=== PATIENT | male | born 1955 | race Caucasian/White ===

== ENCOUNTER 2018-02-15 08:19 | Emergency (ER) | payer MEDICARE ==
[~2018-02-15] VITALS: Ht 180.3 cm; Wt 105.0 kg
[~2018-02-15 08:19] MED LIST: BACTRIM DS1 TAB PO; DEPAKOTE250 MG OR; DEPAKOTE500 MG PO; DILANTIN100 MG PO; DOES NOT KNOW MEDS; ENALAPRIL5 MG PO; HYDROCHLORO25 MG/TAB PO; HYDROCHLOROT25 MG PO; KEPPRA500 M2 PO; LISINOPRIL10 MG PO; LISINOPRIL5 MG PO; METOPROLOL SUCC50 MG; METOPROLOL TART50 MG OR; METOPROLOL TART50 MG PO; PENICILLN VK500 MG PO; VANCOMYCIN HCL1.5GM IV
[2018-02-15 09:00] LABS: IMMATURE GRANULOCYTES 0.6 % (0.0-5.0); MEAN CELL VOLUME 89.6 fL CALC (80.0-100.0); MEAN CORPUSCULAR HGB 30.6 pG CALC (26.0-32.0); MEAN CORPUSCULAR HGB CONC 34.2 g/L CALC (32.0-36.0); NEUT# 4.28 thou/uL (1.82-7.42); RED CELL DISTRI WIDTH 13.1 % (11.5-15.5)
[2018-02-15 09:09] LABS: ANION GAP 16 (6-22 (CALC)); BILIRUBIN, TOTAL 0.4 mg/dL (0.0-1.4); BUN 20 mg/dL (8-23); BUN/CREATININE RATIO 18 (12-20 (CALC)); CARBON DIOXIDE 23 mmol/l (22-30); CHLORIDE 106 mmol/l (95-108); CREATININE 1.1 mg/dL (0.7-1.3); GFR > 60 ML/MIN (>=60 (CALC)); GFR FOR AFR.AMER. > 60 ML/MIN (>=60 (CALC)); POTASSIUM 4.6 mmol/l (3.5-5.1); SGPT/ALT 50 u/l (11-66); SODIUM 141 mmol/l (137-146)
[2018-02-15 09:10] LABS: HEMATOCRIT 44.8 % (39.0-50.0); HEMOGLOBIN 15.3 g/dl (14.0-18.0)
[2018-02-15 09:27] LABS: ALBUMIN 4.3 g/dL (3.2-5.0); ALKALINE PHOSPHATASE 107 u/l (38-126); SGOT/AST 43 u/l (19-48); TOTAL PROTEIN 7.7 g/dL (6.3-8.2)
[2018-02-15] MEDS ORDERED: MIRALAX3350 N1 PO (15:54)
[2018-02-15 16:00] VITALS: BP 184/81
== END 2018-02-15 16:05 | disposition home or self-care (01) ==
LOC: ED 08:19
PROVIDERS: Emergency Medicine
DX: K59.00 Constipation, unspecified (principal); M25.511 Pain in right shoulder; R10.11 Right upper quadrant pain; I10 Essential (primary) hypertension; G40.909 Epilepsy, unspecified, not intractable, without status epilepticus; R07.9 Chest pain, unspecified

== ENCOUNTER 2019-02-11 09:41 | Emergency (ER) | payer OTHER, MEDICARE ==
[~2019-02-11] VITALS: Ht 180.3 cm; Wt 106.8 kg
[~2019-02-11 09:41] MED LIST changes: +MIRALAX3350 N1 PO
[2019-02-11 10:18] LABS: HEMATOCRIT 42.9 % (39.0-50.0); HEMOGLOBIN 14.7 g/dl (14.0-18.0); MEAN CELL VOLUME 89.4 fL CALC (80.0-100.0); MEAN CORPUSCULAR HGB 30.6 pG CALC (26.0-32.0); MEAN CORPUSCULAR HGB CONC 34.3 g/L CALC (32.0-36.0); NEUT# 5.71 thou/uL (1.82-7.42); RED BLOOD COUNT 4.8 mill/uL (4.70-6.10); RED CELL DISTRI WIDTH 13.2 % (11.5-15.5)
[2019-02-11 10:33] LABS: ALBUMIN 4.6 g/dL (3.2-5.0); ALKALINE PHOSPHATASE 114 u/l (38-126); ANION GAP 16 (6-22 (CALC)); BILIRUBIN, TOTAL 0.4 mg/dL (0.0-1.4); BUN 20 mg/dL (8-23); BUN/CREATININE RATIO 18 (12-20 (CALC)); CARBON DIOXIDE 25 mmol/l (22-30); CHLORIDE 99 mmol/l (95-108); CREATININE 1.1 mg/dL (0.7-1.3); GFR > 60 ML/MIN (>=60 (CALC)); GFR FOR AFR.AMER. > 60 ML/MIN (>=60 (CALC)); LIPASE 254 u/l (23-300); POTASSIUM 4.4 mmol/l (3.5-5.1); SGOT/AST 70 u/l (19-48); SODIUM 135 mmol/l (137-146); TOTAL PROTEIN 7.9 g/dL (6.3-8.2)
[2019-02-11 10:40] LABS: GFR > 60 ML/MIN (>=60 (CALC)); GFR FOR AFR.AMER. > 60 ML/MIN (>=60 (CALC))
[2019-02-11] MEDS ORDERED: AMOXICILLIN/CL875 MG PO (12:39)
[2019-02-11 13:00] VITALS: BP 152/74
[2019-02-11] MEDS ORDERED: CYCLOBENZAPR5 MG PO (13:06)
== END 2019-02-11 13:52 | disposition home or self-care (01) | DRG 90 ==
LOC: ED 09:41
PROVIDERS: Family Medicine
DX: S06.0X1A Concussion with loss of consciousness of 30 minutes or less, initial encounter (principal); S02.2XXA Fracture of nasal bones, initial encounter for closed fracture; S00.31XA Abrasion of nose, initial encounter; V59.49XA Driver of pick-up truck or van injured in collision with other motor vehicles in traffic accident, initial encounter
CPT/HCPCS: Q9967

== ENCOUNTER 2024-07-20 10:23 | Emergency (ER) | payer MEDICARE ==
[~2024-07-20] VITALS: Ht 180.3 cm; Wt 99.8 kg
[2024-07-20] VITALS (14 sets, daily range): BP systolic 71–143; BP diastolic 44–74
[~2024-07-20 10:23] MED LIST changes: +AMOXICILLIN/CL875 MG PO; +CYCLOBENZAPR5 MG PO; +ESMOLOL; +LAMICTAL200 M1 PO; +TOPROL XL50 MG PO
[2024-07-20] MEDS ORDERED: ASPIRIN 81 MG/TAB PO ONE (11:10)
[2024-07-20 11:14] LABS: BASO% 0.3 % (0-3); HEMATOCRIT 41.8 % (39.0-50.0); HEMOGLOBIN 13.7 g/dl (14.0-18.0); IMMATURE GRANULOCYTES 1.4 % (0.0-5.0); MEAN CELL VOLUME 96.3 fL CALC (80.0-100.0); MEAN CORPUSCULAR HGB 31.6 pG CALC (26.0-32.0); MEAN CORPUSCULAR HGB CONC 32.8 g/dL CAL (32.0-36.0); MONO% 7.8 % (2-13); NEUT# 4.62 thou/uL (1.82-7.42); NEUT% 66.5 % (42-76); RED BLOOD COUNT 4.34 mill/uL (4.70-6.10); RED CELL DISTRI WIDTH 14.1 % (11.5-15.5)
[2024-07-20] MEDS ORDERED: LIDOCAINE HCL 2 % JELLY TOP ONE (11:30)
[2024-07-20 11:38] LABS: ALBUMIN 4.1 g/dL (3.2-5.0); BILIRUBIN, TOTAL 0.5 mg/dL (0.2-1.3); CHOLESTEROL HDL RATIO 4.3 (<4.4 (CALC)); CREATININE 1.7 mg/dL (0.7-1.3); POTASSIUM 5.4 mmol/l (3.5-5.1); TOTAL PROTEIN 7.1 g/dL (6.3-8.2)
[2024-07-20 11:40] LABS: PROTHROMBIN TIME 10.9 SECONDS (9.0-12.5)
[2024-07-20] MEDS ORDERED: MORPHINE SULFATE 4 MG/ML VIAL IV ONE (15:00)
[2024-07-20] MEDS ORDERED: SODIUM CHLORIDE 0.9% 1,000 ML IV ONE (15:35)
== END 2024-07-20 20:57 ==
LOC: ED 10:23 → ED-I 12:30 → ED 20:57
PROVIDERS: Family Medicine
PROC: 0T9B70Z Drainage of Bladder with Drainage Device, Via Natural or Artificial Opening (ICD-10-PCS; principal; 2024-07-20)
DX: I63.9 Cerebral infarction, unspecified (principal); R42 Dizziness and giddiness; R29.700 NIHSS score 0; R33.9 Retention of urine, unspecified; R31.9 Hematuria, unspecified; I10 Essential (primary) hypertension; G40.909 Epilepsy, unspecified, not intractable, without status epilepticus; Z20.822 Contact with and (suspected) exposure to COVID-19
CPT/HCPCS: Q9967